=== PATIENT | female | born 1960 | race Caucasian/White ===

== ENCOUNTER 2017-07-27 07:10 | Day surgery (SDC) | payer BC ==
[2017-07-27] MEDS ORDERED: FENTAnyl 50 MCG/ML VIAL (09:21)
[2017-07-27] MEDS ORDERED: MIDAZOLAM 1 MG/ML 2 ML INJ ×2 (09:21→09:22)
[2017-07-27] MEDS ORDERED: ATROPINE 1 MG/10 ML SYRINGE (09:21)
== END 2017-07-27 11:06 | disposition home or self-care (01) ==
LOC: GIL 07:10
DX: K92.1 Melena (principal); K64.8 Other hemorrhoids; I10 Essential (primary) hypertension
CPT/HCPCS: 45378